=== PATIENT | male | born 1990 | race Caucasian/White ===

== ENCOUNTER 2017-12-31 08:41 | Emergency (ER) | payer OTHER ==
[~2017-12-31 08:41] MED LIST: AUG500 PO; GUAI-545 PO; LOR5 PO; PER PO; [UNRECOGNIZED DRUG - REMARK]
--- NOTE | 2017-12-31 08:51 | ER Report ---
History and Physical Time Seen By MD: 08:48 HPI/ROS CHIEF COMPLAINT: Wound check HISTORY OF PRESENT ILLNESS: Patient had a mole removal on 12/21/2017. He had subsequent suture removal on December 28. This morning he woke up and he has increasing discomfort and noticed that he was bleeding from surgical site so he presents to the urgency department for evaluation. Allergies: Coded Allergies: Ciprofloxacin (Verified Allergy, Intermediate, EXTREMITIES TINGLE AND BURN LOSS OF SENSATION HEADACHE, 07/03/10) Home Meds Discontinued Reported Medications Acetaminophen/Hydrocodone (Lortab 5/500) 5 Mg/500 Mg Tab, 1 - 2 TAB PO Q4-6H Y, #30 0 Refills 07/03/10 Guaifenesin/P-Ephed Hcl (Mucinex D Tablet) 1 Each Tab.sr.12h, 1 EACH PO, 0 Refills 07/03/10 [No Rouitne Meds] No Conflict Check, 0 Refills 09/12/09 Past Medical/Surgical History Noncontributory Constitutional Vital Sign - Last 24 Hours 12/31/17 12/31/17 08:49 08:58 Temp 98.0 Pulse 65 60 Resp 16 16 B/P (MAP) 138/89 132/84 (100) Pulse Ox 94 94 O2 Delivery Room Air Room Air Physical Exam General appearance: Alert no distress. Respiratory: Chest is non tender, lungs are clear to auscultation. Cardiac: Regular rate and rhythm [ ] Skin exam: Patient had a midline surgical incision at approximately the T4 level. The surrounding skin looks pink no areas of necrosis noted. Patient does have a mild wound dehiscence. There is no obvious signs of infection there is no purulent discharge from the wound. Medical Decision Making ED Course/Re-evaluation ED Course Plan at this time will be dressing change. We will place Gelfoam over the wound followed by clean set of Steri-Strips Decision to Disposition Date: December 31, 2017 Decision to Disposition Time: 09:02 Depart Departure Latest Vital Signs Vital Signs Date Time Temp Pulse Resp B/P (MAP) Pulse Ox O2 Delivery O2 Flow Rate FiO2 12/31/17 08:58 60 16 132/84 (100) 94 Room Air 12/31/17 08:49 98.0 Impression: Primary Impression: Visit for wound check Condition: Improved Disposition: HOME OR SELF-CARE Referrals: [facility], ON[facility] (PCP) as needed for routine health maintenence New Scripts No Active Prescriptions or Reported Meds Patient Instructions: Steristrdeuce (ED) SOHAIL CUENCA MD December 31, 2017 08:51
[2017-12-31 08:58] VITALS: BP 132/84
== END 2017-12-31 09:00 | disposition home or self-care (01) ==
LOC: ER 08:49
DX: L76.21 Postprocedural hemorrhage of skin and subcutaneous tissue following a dermatologic procedure (principal)
CPT/HCPCS: 99282